=== PATIENT | female | born 1955 | race Two or more races ===

== ENCOUNTER → 2024-06-25 | Outpatient (CLI) | payer MEDICARE, MEDICAID, SELFPAY ==
--- NOTE | 2024-06-25 14:45 | XR_ITS ---
Examination: Screening digital mammography, bilateral Computer aided detection 3-D breast Tomosynthesis, bilateral Date and time of exam: June 25, 2024 1445 hours No priors Indication: Screening Technique: Nonmagnified MLO, CC views of the breasts to been obtained, reconstructed from 3-D Tomosynthesis images. R2 computer aided detection program utilized for evaluation of suspicious masses and/or abnormal calcifications. 3-D Tomosynthesis images obtained. Findings: Scattered areas of fibroglandular density. Benign calcifications. No suspicious masses Impression: BI-RADS category II: Benign Findings. Recommend 1 year follow-up mammogram.
== END | disposition home or self-care (01) ==
PROVIDERS: Referring Provider Family Medicine; Visit Provider Family Medicine
DX: Z12.31 Encounter for screening mammogram for malignant neoplasm of breast (principal); R92.323 Mammographic fibroglandular density, bilateral breasts; R92.1 Mammographic calcification found on diagnostic imaging of breast
CPT/HCPCS: 77063; 77067

== ENCOUNTER 2025-03-31 06:40 | Day surgery (SDC) | payer OTHER, MEDICAID, SELFPAY ==
[2025-03-30 10:38] VITALS: BMI 33.6
[2025-03-31] VITALS (12 sets, daily range): BP systolic 134–187; BP diastolic 77–119; PULSE 56–73; RESP 8–18; TEMP 36.3–36.7; O2SAT 90–99; BMI 34.6
[2025-03-31] MEDS: SODIUM CHLORIDE 0.9% 500 ML 500 ML 20 ML IV (07:30)
[2025-03-31] MEDS: SIMETHICONE 40 MG/0.6 ML ORAL SYRINGE PO (07:55)
--- NOTE | 2025-03-31 08:17 | SUR.PHASEII ---
patient into recovery with no acute distress noted, v/s stable, no complaints of pain or nausea at this time, patient repositions self for comfort, report received from Malathi SAINI.
--- NOTE | 2025-03-31 08:37 | SUR.PHASEII ---
patient passing large amounts of flatus, patient abdomen soft upon palpation.
--- NOTE | 2025-03-31 08:50 | SUR.PHASEII ---
patient able to ambulate with minimal assistance, patient getting dressed to go home.
--- NOTE | 2025-03-31 08:55 | SUR.PHASEII ---
discharge instructions given by Malathi SAINI to patient and patient's sister Leelee. Patient discharged home at 0855.
== END 2025-03-31 08:55 | disposition home or self-care (01) ==
PROVIDERS: PCP Family Medicine; Referring Provider Surgery; Visit Provider Surgery
PROC: 0DJD8ZZ Inspection of Lower Intestinal Tract, Via Natural or Artificial Opening Endoscopic (ICD-10-PCS; CPT 45378; principal; 2025-03-31 07:30)
DX: Z12.11 Encounter for screening for malignant neoplasm of colon (principal); D12.3 Benign neoplasm of transverse colon; D12.4 Benign neoplasm of descending colon; D12.8 Benign neoplasm of rectum; K64.1 Second degree hemorrhoids; K57.30 Diverticulosis of large intestine without perforation or abscess without bleeding; Z86.0100 Personal history of colon polyps, unspecified; E11.9 Type 2 diabetes mellitus without complications; I10 Essential (primary) hypertension; Z79.899 Other long term (current) drug therapy; Z79.84 Long term (current) use of oral hypoglycemic drugs
CPT/HCPCS: 45385; 45380; A4649; J1200; J2250; J3010; J7999; A9270